=== PATIENT | female | born 1950 | race Caucasian/White ===

== ENCOUNTER → 2017-08-23 | Outpatient (CLI) | payer BC ==
[~2017-08-23] MED LIST: BENTYL 10MG10 MG/CAP PO; COLESTID 1GM1 G PO; CULTURELLE10 Billion PO; EPA1000 MG PO; LEVOXYL0.075 MG; METROGEL GEL45 GM TP; NORCO 325 MG-51 TAB PO; PRAVACHOL10 MG PO; PRIL40
== END ==
LOC: MC.RAD 08-15 08:40
DX: Z12.31 Encounter for screening mammogram for malignant neoplasm of breast (principal)

== ENCOUNTER → 2018-08-27 | Outpatient (CLI) | payer MEDICARE, BC | LOC: MC.RAD 13:40 | DX: Z12.31 Encounter for screening mammogram for malignant neoplasm of breast (principal) ==

== ENCOUNTER → 2019-09-02 | Outpatient (CLI) | payer MEDICARE, BC | LOC: MC.RAD 13:45 | DX: Z12.31 Encounter for screening mammogram for malignant neoplasm of breast (principal) ==

== ENCOUNTER → 2020-09-03 | Outpatient (CLI) | payer MEDICARE, BC | LOC: MC.RAD 14:15 | DX: Z12.31 Encounter for screening mammogram for malignant neoplasm of breast (principal) ==

== ENCOUNTER → 2021-05-05 | Outpatient (CLI) | payer MEDICARE, BC | LOC: COL.RAD 07:42 | DX: M54.16 Radiculopathy, lumbar region (principal); M99.05 Segmental and somatic dysfunction of pelvic region; R26.2 Difficulty in walking, not elsewhere classified | CPT/HCPCS: J3301; Q9967 ==

== ENCOUNTER → 2021-10-21 | Outpatient (CLI) | payer MEDICARE, BC | LOC: MC.RAD 11:45 | DX: Z12.31 Encounter for screening mammogram for malignant neoplasm of breast (principal) ==

== ENCOUNTER → 2021-11-26 | Outpatient (CLI) | payer MEDICARE, BC | LOC: COL.RAD 10:43 | DX: M25.551 Pain in right hip (principal) | CPT/HCPCS: J3301; Q9967 ==

== ENCOUNTER 2021-12-23 07:37 | Day surgery (SDC) | payer MEDICARE, BC ==
[~2021-12-23] VITALS: Ht 160 cm; Wt 92.7 kg
[~2021-12-23 07:37] MED LIST changes: -PRIL40; +PRIL40 PO
[2021-12-23] MEDS ORDERED: SYNTHROID0.05 MG/TA PO (08:03)
[2021-12-23] MEDS ORDERED: THE MEDICINE S200 M2 PO (08:04)
[2021-12-23] MEDS ORDERED: PRINIVIL10 MG PO (08:04)
[2021-12-23] MEDS ORDERED: METROCREAM CREA45 GM TP (08:05)
[2021-12-23] MEDS ORDERED: MASON NATURAL2000 IU PO (08:05)
[2021-12-23 08:20] VITALS: BP 132/65; PULSE 79; TEMP 97.4
[2021-12-23 10:05] VITALS: BP 118/63; PULSE 70; TEMP 97.6
[2021-12-23 10:20] VITALS: BP 124/65; PULSE 61
[2021-12-23 10:35] VITALS: BP 128/73; PULSE 57
--- NOTE | 2021-12-23 11:00 | NUR ---
1005 PT RETURNED TO [facility] VIA CART. TRANSFERED TO CHAIR WITH RN ASSIST. ALERT AND ORIENDTED. MONITORS ATTACHED AND INTERVALS AND ALARMS SET. PT DENIES PAIN OR NAUSEA. COFFEE AND TOAST PROVIDED. CALL LIGHT IN REACH. RIDE CALLED FOR [employer] TIME. 1020 PT TOLERATING FOOD AND DRINK WELL. VSS. 1035 VSS. REVIEWED DISCHARGE INSTRUCTIONS AND EDUCATION MATERIAL, ANSWERED ALL QUESTIONS. REMOVED IV WITHOUT COMPLICATIONS. PT ALLOWED TO DRESS. 1100 PT TRANSFERED TO PERSONAL VEHICLE TO BE DRIVEN HOME BY FRIEND.
== END 2021-12-23 11:00 | disposition home or self-care (01) ==
LOC: SDCO 07:37
DX: Z12.11 Encounter for screening for malignant neoplasm of colon (principal); D12.2 Benign neoplasm of ascending colon; D12.3 Benign neoplasm of transverse colon; D12.4 Benign neoplasm of descending colon; K57.30 Diverticulosis of large intestine without perforation or abscess without bleeding; E66.01 Morbid (severe) obesity due to excess calories
CPT/HCPCS: J2704; J7120

== ENCOUNTER → 2023-12-13 | Outpatient (CLI) | payer MEDICARE, BC ==
[~2023-12-13] MED LIST changes: +FOSAMAX 70MG TA70 MG PO; +LIPITOR20 MG PO; +METROCREAM CREA45 GM TP; +OSCAL 500 TAB500 MG PO; +PRINIVIL10 MG PO; +SYNTHROID0.05 MG/TA PO; +THE MEDICINE S200 M2 PO; +VITAMIN C500 MG PO; +VITAMIN D31000 I1 PO; +[UNRECOGNIZED DRUG - OTHER] DT
== END ==
LOC: MC.RAD 14:35
DX: Z12.31 Encounter for screening mammogram for malignant neoplasm of breast (principal)

== ENCOUNTER 2024-06-13 13:24 | Outpatient (CLI) | payer MEDICARE, BC ==
[~2024-06-13] VITALS: Ht 160 cm; Wt 97.0 kg
[~2024-06-13 13:24] MED LIST changes: +CLEOCIN HCL300 MG PO; +FINACEA15% TP; +PROLIA60 MG/ML SQ; -SYNTHROID0.05 MG/TA PO; +SYNTHROID0.1 MG/TAB PO; +TRIAMCINOLONE A15 G3 TP
[2024-06-13 13:34] VITALS: BP 146/72; PULSE 70; TEMP 98.4
[2024-06-13] MEDS ORDERED: CARDIZEM 60MG T60 MG PO (13:44)
[2024-06-13] MEDS ORDERED: LIPITOR 40MG TA40 MG PO (13:44)
[2024-06-13] MEDS ORDERED: ASPIRIN 81M81 MG/TA2 PO (13:45)
[2024-06-13] MEDS ORDERED: Denosumab 60 MG/ML SYRINGE SQ ONE (13:45)
--- NOTE | 2024-06-13 14:43 | NUR ---
PT TOLERATED INJECTION WELL. VS REMAINED WITHIN NORMAL LIMITS. PT AMBULATED TO LOBBY INDEPENDENTLY UPON DISCHARGE. PT FREE FROM ACUTE CONCERNS AND COMPLAINTS.
== END 2024-06-13 14:44 | disposition home or self-care (01) ==
LOC: EUO 13:24
DX: M81.0 Age-related osteoporosis without current pathological fracture (principal)
CPT/HCPCS: J0897